=== PATIENT | female | born 1940 | race Caucasian/White ===

== ENCOUNTER → 2017-11-22 | Outpatient (CLI) | payer MEDICARE, OTHER ==
[~2017-11-22] MED LIST: ACYC-58 PO; ALL300 PO; ALLERGY SHOT; AMOX-359 PO; ASPI-1471 PO; BAC PO; BIOT250012 PO; BRIM5DRO7 OP; CEPH-13 PO; CETI10CA8 PO; CHOL200074 PO; CLI150 PO; CRAN500C11 PO; CYAN100015 PO; FAMO10TA89 PO; FAMO20TA28 PO; HYDR-385 PO; IBU600 PO; IBUP-2708 PO; KET10 PO; LISI-349 PO; LOR5 PO; LUTE20CA11 PO; METO25TA23 PO; MONT10TA PO; MONT5TAB PO; NIAC500C12 PO; OMEP-125 PO; PHEN-530 PO; PHEN200T32 PO; PHENA200 PO; VAL80 PO; VIT1CAPS9; VITAMINS
== END ==
LOC: US 11-14 00:15
PROVIDERS: ATTEND Family Medicine
DX: I50.30 Unspecified diastolic (congestive) heart failure (principal); I34.0 Nonrheumatic mitral (valve) insufficiency; I07.1 Rheumatic tricuspid insufficiency
CPT/HCPCS: 93306

== ENCOUNTER → 2018-01-05 | Outpatient (CLI) | payer MEDICARE, OTHER ==
--- NOTE | 2018-01-05 15:39 | RADIOLOGY IMAGING REPORT ---
FACILITY: [facility] PATIENT NAME: Lashell Taveras : 1940 MR: [id number] V: [id number] EXAM DATE: ORDERING PHYSICIAN: WENDY CAPUTO TECHNOLOGIST: Location: [facility] Patient: Lashell Taveras : 1940 Visit/Account:[id number] Date of Sevice: 01/05/2018 Carotid ultrasound Indication: Carotid stenosis, history of plaque Comparison: Carotid ultrasound October 18, 2016 Findings: On the right : Peak systolic velocity of the right common carotid artery is 148 cm/s Peak systolic velocity of the right internal carotid artery is 129, 141 and 122 cm/s within the proxi mal, mid and distal portion respectively. Grayscale images demonstrate mild plaque posteriorly withi n the right carotid bulb which extends to more focal mild to moderate plaque in the more distal bulb with extension into the proximal internal carotid artery. Waveform morphology in the right internal carotid artery demonstrates sharp systolic acceleration curve. Mild spectral broadening indicative o f turbulence is noted There is normal antegrade flow of the right vertebral artery. The right ICA/CCA ratio is 0.95 On the left: Peak systolic velocity of the left common carotid artery is 177 cm/s Peak systolic velocity of the left internal carotid artery is 153, 152 and 120 cm/s in the proximal, mid and distal portion respectively. Grayscale images demonstrate mild posterior plaque carotid bulb and proximal portion left internal carotid artery. Waveform morphology in the left internal carotid artery demonstrates a sharp systolic acceleration curve. There is normal antegrade flow of the left vertebral artery. The left ICA/CCA ratio is 1.53 IMPRESSION: 1. By SRU criteria, there is 50-69% stenosis right internal carotid artery. 2. Compared to prior examination, stable mild atherosclerotic disease left carotid bulb without evid ence of hemodynamically significant disease involving the left internal carotid artery. Via SRU crit eria, less than 50% stenosis. Report Dictated By: David Austin MD at 01/05/2018 3:27 PM Report E-Signed By: David Austin MD at 01/05/2018 3:34 PM WSN:[email or web address]
== END ==
LOC: US 13:55
PROVIDERS: ATTEND Surgery Vascular Surgery
DX: I65.21 Occlusion and stenosis of right carotid artery (principal)
CPT/HCPCS: 93880

== ENCOUNTER → 2018-04-21 | Outpatient (CLI) | payer MEDICARE, OTHER ==
--- NOTE | 2018-04-21 15:59 | RADIOLOGY IMAGING REPORT ---
FACILITY: [facility] [place] PATIENT NAME: Lashell Taveras : 1940 MR: [id number] V: [id number] EXAM DATE: ORDERING PHYSICIAN: JULITO BOB TECHNOLOGIST: Location: [facility] Patient: Lashell Taveras : 1940 Visit/Account:[id number] Date of Sevice: 04/21/2018 Thoracic spine, three views, and lumbar spine, two views. HISTORY: Back pain. COMPARISON: Lumbar spine 11/18/2011. The bones are osteopenic. Moderate-sized marginal osteophytes and moderate loss of disc height are p resent at multiple thoracic and cervical levels. The C3-4 disc is chronically fused. A mild levosco liosis is present in the lower thoracic spine. The cervical thoracic junction and the thoracic poste rior elements are partially obscured. Arterial calcifications are present in the chest and abdomen. A mild to moderate dextroscoliosis is present in the lumbar spine. Moderate to large sized endplate osteophytes and moderate to severe loss of disc height are present at L1-2 through L4-5. Mild loss o f disc height is present at the other lumbar levels. Mild cupping is present in the superior endplat e of L3, unchanged. No acute fractures. The sacroiliac joints are unremarkable. Degenerative changes in the lumbar spine have increased compared to previous. IMPRESSION: Mild to moderate thoracolumbar scoliosis. Moderate to severe multilevel cervical/thoracic/lumbar degenerative disc disease. Atherosclerosis. Report Dictated By: Andrew Salinas MD at 04/21/2018 3:48 PM Report E-Signed By: Andrew Salinas MD at 04/21/2018 3:55 PM WSN:JOSE JUAN
--- NOTE | 2018-04-21 16:00 | RADIOLOGY IMAGING REPORT ---
FACILITY: [facility] [place] PATIENT NAME: Lashell Taveras : 1940 MR: [id number] V: [id number] EXAM DATE: ORDERING PHYSICIAN: JULITO BOB TECHNOLOGIST: Location: [facility] [place] Patient: Lashell Taveras : 1940 Visit/Account:[id number] Date of Sevice: 04/21/2018 Thoracic spine, three views, and lumbar spine, two views. HISTORY: Back pain. COMPARISON: Lumbar spine 11/18/2011. The bones are osteopenic. Moderate-sized marginal osteophytes and moderate loss of disc height are p resent at multiple thoracic and cervical levels. The C3-4 disc is chronically fused. A mild levosco liosis is present in the lower thoracic spine. The cervical thoracic junction and the thoracic poste rior elements are partially obscured. Arterial calcifications are present in the chest and abdomen. A mild to moderate dextroscoliosis is present in the lumbar spine. Moderate to large sized endplate osteophytes and moderate to severe loss of disc height are present at L1-2 through L4-5. Mild loss o f disc height is present at the other lumbar levels. Mild cupping is present in the superior endplat e of L3, unchanged. No acute fractures. The sacroiliac joints are unremarkable. Degenerative changes in the lumbar spine have increased compared to previous. IMPRESSION: Mild to moderate thoracolumbar scoliosis. Moderate to severe multilevel cervical/thoracic/lumbar degenerative disc disease. Atherosclerosis. Report Dictated By: Andrew Salinas MD at 04/21/2018 3:48 PM Report E-Signed By: Andrew Salinas MD at 04/21/2018 3:55 PM WSN:JOSE JUAN
== END ==
LOC: RAD 14:52
PROVIDERS: ATTEND Physician Assistant
DX: M41.35 Thoracogenic scoliosis, thoracolumbar region (principal); I70.90 Unspecified atherosclerosis
CPT/HCPCS: 72070; 72100

== ENCOUNTER → 2018-06-08 | Outpatient (CLI) | payer MEDICARE, OTHER ==
--- NOTE | 2018-06-12 14:12 | RADIOLOGY IMAGING REPORT ---
FACILITY: [facility] [place] PATIENT NAME: MELONY RANDOLPH : [id number] MR: [id number] V: [id number] EXAM DATE: [id number] ORDERING PHYSICIAN: JULITO OBB TECHNOLOGIST: Evelyn Farmer PROCEDURE:BILATERAL DIAGNOSTIC DIGITAL MAMMOGRAM WITH CAD ASSISTED INTERPRETATION & 3D TOMOSYNTHESIS COMPARISON:Prior mammograms 01/13/17, 12/31/15, 01/17/15, 06/13/14, 11/28/13. INDICATIONS:History of Right breast cancer FINDINGS: There are scattered areas of fibroglandular density throughout the breasts. There is architectural distortion and scaring in the deep central Right breast with adjacent surgical clips from prior lumpectomy. The parenchymal pattern has remained stable allowing for difference in mammographic technique & patient positioning. DIAGNOSTIC CATEGORY 2--BENIGN FINDING. RECOMMENDATIONS: ROUTINE MAMMOGRAM AND CLINICAL EVALUATION. IMPRESSION: BIRADS 2: Benign finding. No significant abnormality is seen at this time. Dictated by: Shilpa Oorzco M.D. on 06/08/2018 at 16:09 Transcribed by: SHERMAN on 06/12/2018 at 10:20 Approved by: Shilpa Orozco M.D. on 06/12/2018 at 14:11 [facility]
== END ==
LOC: MAMO 01:02
PROVIDERS: ATTEND Physician Assistant
DX: Z85.3 Personal history of malignant neoplasm of breast (principal)
CPT/HCPCS: 77062; 77066

== ENCOUNTER → 2018-08-10 | Outpatient (CLI) | payer MEDICARE, OTHER ==
[~2018-08-10] MED LIST changes: +ACYC-50 PO; +ALLO-119 PO; +CHLO-120 PO; +LACT1CAP6 PO; +LOSA50TA80 PO; -OMEP-125 PO; +OMEP-126 PO
--- NOTE | 2018-08-10 12:56 | RADIOLOGY IMAGING REPORT ---
[place] [facility] [place] NAME: Lashell Taveras : 1940 MR: [id number] V: [id number] EXAM DATE: ORDERING PHYSICIAN: DARIO JUNE TECHNOLOGIST: Location: [facility] [place] Patient: Lashell Taveras : 1940 Visit/Account:[id number] Date of Sevice: 08/10/2018 EXAMINATION: Right shoulder, 3 views 08/10/2018 10:21 AM HISTORY: Right shoulder pain for 2 weeks. No known injury. COMPARISON: None FINDINGS: Degenerative changes with spurring along the glenohumeral and AC articulations. No fractu re or other acute bony finding evident. Subacromial joint space well-preserved. IMPRESSION: Mild degenerative changes. No acute bony finding. Report Dictated By: Rocky Torres MD at 08/10/2018 12:50 PM Report E-Signed By: Rocky Torres MD at 08/10/2018 12:52 PM WSN:[email or web address]
== END ==
LOC: RAD 10:12
PROVIDERS: ATTEND Nurse Practitioner Primary Care
DX: M25.511 Pain in right shoulder (principal)

== ENCOUNTER → 2018-08-23 | Outpatient (CLI) | payer MEDICARE, OTHER ==
[~2018-08-23] MED LIST changes: +CEPH500T7 PO
== END ==
LOC: LAB 14:27
PROVIDERS: ATTEND Emergency Medicine
DX: Z02.9 Encounter for administrative examinations, unspecified (principal)